=== PATIENT | female | born 1940 | race Caucasian/White ===

== ENCOUNTER → 2020-11-13 | Outpatient (CLI) | payer MEDICARE, OTHER ==
[~2020-11-13] MED LIST: IOHEXOL 240 MG/ML 50ML VIAL. ONE; IOHEXOL 300 MG/ML 75 ML VIAL. IV ONE
[2020-11-13 09:24] LABS: ALBUMIN 3.7 g/dL (3.4-5.0); ALBUMIN/GLOBULIN RATIO 1.1 (1.0-1.7); CALCIUM 9.5 mg/dL (8.5-10.1); CREATININE 0.8 mg/dL (0.6-1.0); GFR 69.6; TOTAL BILIRUBIN 0.3 mg/dL (0.2-1.0)
--- NOTE | 2020-11-13 14:02 | RAD ---
EXAM: Abdomen and pelvis CT with intravenous contrast. HISTORY: Gastroesophageal reflux. TECHNIQUE: Computed tomographic images of the abdomen and pelvis were obtained following the administ ration of intravenous contrast. Multiplanar reformatting was performed. *One or more of the following individualized dose reduction techniques were utilized for this examina tion: 1. Automated exposure control. 2. Adjustment of the mA and/or kV according to patient size. 3. Use of iterative reconstruction technique. COMPARISON: None. FINDINGS: Evaluation of the lower thorax demonstrates right middle lobe and bilateral basilar atelect asis or scarring. There is no infiltrate or pleural effusion. There is mild distal esophageal wall th ickening. The gastric wall is thickened, likely due to relative under distention. No hepatic lesion i s seen. The gallbladder, pancreas, and adrenal glands are unremarkable. There is a small splenule adj acent to a normal sized spleen. There are few splenic granulomas. There is a tiny simple left renal c yst. Follow-up is not routinely performed for simple cysts. There is no suspicious renal lesion. Ther e is no hydronephrosis. There is no appendicitis. There is moderate to large amount of stool througho ut the colon. There is no evidence of bowel obstruction or abnormal bowel wall thickening. The aorta is normal in caliber. There is no lymphadenopathy. The uterus, adnexal regions and urinary bladder ar e unremarkable. There is lumbar scoliosis and degenerative change throughout the lumbar spine. There is no acute or suspicious osseous lesion. IMPRESSION: 1. Mild distal esophageal wall thickening. This may be physiologic. Correlate for mild esophagitis in this patient with a history of reflux. 2. Moderate to large amount of colonic stool. Correlate for constipation. Electronically signed by: Barbie Dougherty MD (11/13/2020 9:53 AM) [facility]
== END ==
LOC: CT 07:38
PROVIDERS: ATTEND Family Medicine
DX: K21.00 Gastro-esophageal reflux disease with esophagitis, without bleeding (principal); N28.1 Cyst of kidney, acquired; K59.00 Constipation, unspecified; E78.2 Mixed hyperlipidemia; D73.89 Other diseases of spleen; M47.816 Spondylosis without myelopathy or radiculopathy, lumbar region; M41.86 Other forms of scoliosis, lumbar region
CPT/HCPCS: 36415; 74177; 80053; 80061; Q9967